=== PATIENT | female | born 1995 | race African-American/Black ===

== ENCOUNTER 2018-04-17 14:39 | Emergency (ER) | payer OTHER, SELFPAY ==
[~2018-04-17] VITALS: Ht 165.1 cm; Wt 63.6 kg
[2018-04-17] MEDS ORDERED: FLAG500T PO (18:07)
[2018-04-17 18:10] VITALS: BP 134/75
[2018-04-17] MEDS ORDERED: metroNIDAZOLE (FLAGYL) 500 MG TAB PO ONE (18:15)
[2018-04-17 19:45] LABS: CHLAMYDIA DNA AMPLIFICATION NEGATIVE (NEGATIVE); GC DNA AMPLIFICATION NEGATIVE (NEGATIVE)
== END 2018-04-17 18:16 | disposition home or self-care (01) ==
LOC: M ED 14:39
DX: N76.0 Acute vaginitis (principal); E28.2 Polycystic ovarian syndrome